=== PATIENT | male | born 1950 | race Caucasian/White ===

== ENCOUNTER 2017-05-07 08:43 | Day surgery (SDC) | payer MEDICARE, OTHER ==
[~2017-05-07] VITALS: Ht 182.9 cm; Wt 72.6 kg
[~2017-05-07 08:43] MED LIST: 0.9% Sodium Chloride 1,000 ML IV SCH; ASPI325T32 PO; LEVO25TA5 PO; Sodium Chloride LOK Flush 10 mL Syringe IV PRN; fentaNYL-PF 50 mCg/mL 2 mL Inj IVPUSH PRN
[2017-05-07 09:08] VITALS: BP 127/80; PULSE 55; RESP 14; O2SAT 99
[2017-05-07] MEDS ORDERED: Lactated Ringer's 1,000 ML IV SCH (10:17)
--- NOTE | 2017-05-07 10:17 | PCM.HPANE ---
Patient Data Surgeon Admitting Provider: Attending Provider:Joo Powell MD Primary Care Physician:Gabriele Fernandes MD Other Provider: Reason for Visit Colon Cancer Screening Ht/WT & BMI Height (Feet): 6 Height (Inches): 0 Weight (Kilograms): 72.57 Body Mass Index 21.00 Allergies Coded Allergies: No Known Drug Allergies (Verified Allergy, Unknown, 05/06/17) Past Anesthesia History Anesthesia History: Denies:: Abnormal Airway, Anesthesia Reactions, Difficult Intubation, Fam Anesthesia Reaction, Fam Malignant Hypertherm, Malignant Hyperthermia Diabetes History Hx Diabetes?: No MRSA MRSA: No Medications Blood Thinner: Aspirin Last Dose Blood Thinner: May 04, 2017 Reported Medications Levothyroxine 25 Mcg Tablet1 Tab PO DAILY Ref 0 05/06/17 Aspirin 325 Mg [id number] Mg PO DAILY #1 BOTTLE 05/06/17 History History of ENT Problems?: No HEENT History: Denies:: Abnormal Airway Difficult Intubation Hearing Problem Denture Type: None Teeth Condition: Within Normal Limits Hx of Heart Problems?: No Cardiovascular History: Denies:: AICD Abdominal Aortic Aneurism Atrial Fibrillation Cardiac Surgery Chest Pain Congestive Heart Failure Coronary Artery Disease Edema Heart Murmur Hypertension Irregular Heartbeat Pacemaker Peripheral Vascular Rheumatic Fever Thrombophlebitis Valvular Heart Disease Hx of Respiratory Problem?: No Respiratory History: Denies:: Asthma COPD Chest Surgery Cough Dyspnea Emphysema Hemoptysis Oxygen Administration Pneumonia Pulmonary Embolism Tuberculosis Use of C-PAP Machine Use of Inhalers / NEBS Hx Neurologic Problems?: No Neurological History: Denies:: CVA Hx of GI Problems?: No Hx of Problems?: No Hx Musculoskeletal Problems?: No Hx Surgeries?: Yes (hands with local anesthesia) Hx Any Other Health Problems?: Yes Hx Diabetes: No Hx Alcohol Use: Yes Stop/Bang Treated for Sleep Apnea?: No Do You Have a CPAP Machine?: No S-Snoring: Do You Snore Loudly: No T-Tired: feel tired, fatigued: No O-Obsered: Observed not breath: No P-Blood Pressure: treated: No B- Body Mass Index > 35 kg/m2: No A- Age over 50: Yes N- Neck Large Circumference: No G- Gender Male: Yes DEV Total Score: 2 DEV Risk Assessment: Low Risk, <3 Yes Risk Assessment Category Category 1A: Patient has history of documented sleep apnea, and HAS NOT received any narcotic, sedative or anesthesia administration during this stay. Category 1B: Patient has history of documented sleep apnea, and HAS received any narcotic , sedative or anesthesia administration during this stay Category 2: Patient has SUSPECTED Obstructive Sleep Apnea, and HAS received any narcotic , sedative or anesthesia administration during this stay. Category 3: Patient has SUSPECTED Obstructive Sleep Apnea and HAS NOT received narcotic, sedative or anesthesia administration during this stay. Category 4: Outpatient in Procedural Areas with known sleep apnea or who screen positive for High Risk via the STOP/BANG questionnaire. Exam Exam Vital Signs Vital Signs Date Time Temp Pulse Resp B/P Pulse Ox O2 Delivery O2 Flow Rate FiO2 05/07/17 09:08 55 14 127/80 99 Room Air General Appearance: Oriented X3 HEENT/AIRWAY: Other Lungs: Normal Air Movement Heart: Regular Rate/Rhythm Meds/Labs/Diagnostics Admission Meds Current Medications Sodium Chloride (Normal Saline) 1,000 ml @ 10 mls/hr Q24H IV Last administered on 05/07/17t 10:02; Start 05/07/17 at 06:00 Plan Impression Patient chart reviewed, patient interviewed and anesthestic plan with risks, benefits, and alternatives discussed, and informed consent obtained. ASA Physical Status: ASA2 Plus Emergency Anesthetic Plan: MAC Bene/Risks/Altern/Consents: Yes HP Complete Prior to Induction: Yes Fam Dhillon MD May 07, 2017 10:17
[2017-05-07] MEDS ORDERED: Ondansetron 2 mg/mL 2 mL Inj IVPUSH PRN (10:20)
[2017-05-07] MEDS ORDERED: MetoCLOpramide 5 mg/mL 2 mL Inj IVPUSH PRN (10:20)
[2017-05-07 10:30] VITALS: BP 89/57; PULSE 62; RESP 16; O2SAT 96
[2017-05-07 10:40] VITALS: BP 102/63; PULSE 67; RESP 16; O2SAT 98
[2017-05-07 10:46] VITALS: BP 121/67; PULSE 59; RESP 16; O2SAT 98
--- NOTE | 2017-05-07 13:00 | ENDO ---
[address] [address] ENDOSCOPY PROCEDURE PATIENT: LOUIS HERNANDEZ V : 1950 MR#: [id number] ADMIT: 05/07/2017 JOB ID: [id number] DATE: 05/07/2017 PROCEDURE: Colonoscopy. INDICATION: Screening. ANESTHESIA: Patient's ASA classification is two. Mallampati score is two. MEDICATIONS: Versed 5 mg, Fentanyl 100 mcg. In addition, anesthesia assistance was required as the patient was unable to tolerate the procedure. INSTRUMENT USED: PCF H 180 AL PREPARATION QUALITY: Fair. PROCEDURE DETAILS: After informed consent was obtained, the patient was brought into the GI suite, where he was placed on oxygen via nasal cannula and monitored with continuous pulse oximeter, telemetry, and blood pressure monitoring. A time-out was performed, then he was placed in the left lateral decubitus position and medications were administered for sedation. Digital rectal exam was performed which was unremarkable. The colonoscope was then inserted into the rectum and advanced to the descending colon, where we were unable to advance the scope further secondary to patient discomfort. Despite increasing sedation he was not able to tolerate further advancement of the scope. At this point anesthesia assistance was requested and with deeper sedation we were then able to complete the colonoscopy as we were able to insert the colonoscope to the cecum. Once the cecum was reached, the colonoscope was then withdrawn back to the rectum as the mucosa and lumen were examined. In the rectum, retroflexion was performed. Following retroflexion, the remaining air in the rectum was suctioned and the procedure was completed. FINDINGS: Scattered diverticula were seen throughout the sigmoid colon. Otherwise normal exam from rectum to cecum. IMPRESSION: Left-sided diverticulosis. RECOMMENDATIONS: Repeat colonoscopy in 10 years, sooner if symptoms should dictate. Recommend repeat colonoscopy in 10 years with anesthesia. COMPLICATIONS: None. ESTIMATED BLOOD LOSS: Less than 5 mL.
== END 2017-05-07 23:59 | disposition home or self-care (01) ==
LOC: END 08:43
PROVIDERS: ATTEND Internal Medicine Gastroenterology
DX: Z12.11 Encounter for screening for malignant neoplasm of colon (principal); K57.30 Diverticulosis of large intestine without perforation or abscess without bleeding; Z80.0 Family history of malignant neoplasm of digestive organs; Z79.82 Long term (current) use of aspirin
CPT/HCPCS: 99153; G0105; G0500; J2250; J3010; J7030